=== PATIENT | male | born 1955 | race Caucasian/White ===

== ENCOUNTER 2022-12-25 07:30 | Day surgery (SDC) | payer MEDICARE, OTHER, SELFPAY ==
[2022-12-25 07:55] VITALS: BP 116/78; PULSE 74; RESP 16; TEMP 36.1; O2SAT 98; BMI 33.2
[2022-12-25] MEDS: Lactated Ringers 1,000 ML 15 ML IV (07:57)
--- NOTE | 2022-12-25 08:30 | COLBX_PTH ---
PATIENT: GIA GOSS LOC: EN U#:[id number] AGE/SX: 67/M ROOM: RE12/25/[address]: Dr. Juanpablo Landeros DO : 1955 BED: DIS: 12/25/2022 SPEC #: [id number] RECD: 12/25/22 09:41 STATUS: CAROLYN CURRY #: [id number] BETHANY: 12/25/22 08:[address]: Juanpablo Landeros DEPT: SURGICAL PATHOLOGY RECD BY: Judy Rogers ENTERED: 12/25/22 11:25 SP TYPE: COLON BX OTHR DR: Esme Sorensen, READING COACH-C Tissues: A - Sigmoid colon biopsy B - Rectum, NOS Procedures: Surgery Specimen Level IV HEADER OPERATION: Colonoscopy ? open access (MAC) with biopsies and polypectomy PRE-OP DIAGNOSIS: Screening TISSUE SUBMITTED: A ? Sigmoid polyp biopsy, B ? Rectum polyp MICROSCOPIC DIAGNOSIS A. Sigmoid polyp, biopsy: A fragment of colonic mucosa, no pathologic diagnosis. B. Rectum polyp, polypectomy: Tubular adenoma. Fragments of fecal material. MIGUEL ANGEL:sergio 12/26/2022 MICROSCOPIC DESCRIPTION Slides are reviewed. GROSS DESCRIPTION A - Received in fixative is one container labeled with the patient's name and designated sigmoid polyp biopsy. The specimen consists of one irregular fragment of light garcia soft tissue that measures 0.3 x 0.3 x 0.1 cm. The specimen is totally submitted in one cassette. B - Received in fixative is one container labeled with the patient's name and designated rectum polyp. The specimen consists of a garcia-pink polyp measuring 0.8 x 0.6 x 0.5 cm. The presumed base is inked. The polyp is bisected. Also present in the container are multiple fragments of fecal material. The entire specimen is submitted in one cassette. / MIGUEL ANGEL:sergio 12/25/2022 TC:1 CPT: 56890 x2
--- NOTE | 2022-12-25 08:33 | HP.PCM_ITS ---
[facility] - General General Date of Admission: 12/25/22 Date of Service: 12/25/22 Chief Complaint: Screening colonoscopy [facility] Narrative GIA GOSS, is a 67 M who presents today for screening colonoscopy. He has a past medical history hypertension, diabetes, cholesterolemia. He had a colonoscopy approximately 10 years ago and was normal. He comes in today for screening colonoscopy. He has not had any abdominal pain, cramping, chest pain, shortness of breath or any change in bowel habits. [facility] Medical History Alcohol use CPAP (continuous positive airway pressure) dependence Diabetes History of diverticulitis HTN (hypertension) Hyperlipidemia Leg cramps Non-smoker Wears glasses Home Medications atorvastatin 10 mg tablet 10 mg PO QHS 08/18/22 [History Last Taken Unknown] dapagliflozin propanediol 10 mg tablet (Farxiga) 10 mg PO DAILY DIABETES 08/18/22 [History Last Taken Unknown] lisinopril 10 mg-hydrochlorothiazide 12.5 mg tablet 1 tab PO DAILY 08/18/22 [History Last Taken 12/25/22 06:30] metformin 500 mg tablet 1,000 mg PO BID 08/18/22 [History Last Taken Unknown] omega-3s 300 hv-xqx-qes-other [id number] oil 1,000 mg capsule ([place]-3 Fish Oil) 1 cap PO DAILY SUPPLEMENT 08/18/22 [History Last Taken Unknown] Allergy/AdvReac Type Severity Reaction Status Date / Time No Known Allergies Allergy Verified 12/25/22 07:54 Surgical History History of appendectomy History of arthroscopy of both knees History of colonoscopy History of total left knee replacement Social History Smoking Status: Never smoker ROS Review of Systems ROS Unobtainable: other Constitutional Constitutional: Denies fatigue, fever(s), poor appetite, weight gain or weight loss ENT HEENT: Denies mouth lesions Cardiovascular Cardiovascular: Denies abdominal bloating, abdominal edema or abdominal pain Respiratory/Chest Respiratory/Chest: Denies change in mental status, change in phlegm color, chest congestion or chest tightness Gastrointestinal Gastrointestinal: Denies belching, bloating, change in bowel habits, change in stool character, chewing difficulty, coffee ground emesis, constipation, cramping, diarrhea, dyspepsia, dysphagia, early satiety, excessive flatus, fecal incontinence, heartburn, hematemesis, hematochezia, hemorrhoids, loose stools, melena, nausea, odynophagia, rectal bleeding, tenesmus, vomiting or weight ch anges Genitourinary Genitourinary: Denies abdominal discomfort, burning urination or itching Musculoskeletal Musculoskeletal: Reports as per HPI; Denies muscle weakness or myalgias Integumentary Integumentary: Denies jaundice Neurologic Neurologic: Denies lack of coordination or weakness Psychiatric Psychiatric: Denies confusion, depression, memory loss, mood swings, paranoia or suicidal ideation Endocrine Endocrinology: Denies systems reviewed and no addt'l complaints, except as documented Hematologic/Lymphatic Hematologic/Lymphatic: Denies anemia, easy bleeding, easy bruising or lymphadenopathy Allergic/Immunologic Allergic/Immunologic: Denies systems reviewed and no addt'l complaints, except as documented Vital Signs Vital Signs Vital Signs: 12/25/22 07:55 12/25/22 07:55 Temperature 96.9 F L Temperature Source Temporal Pulse Rate 74 Respiratory Rate 16 Respiratory Pattern Normal Blood Pressure 116/78 Blood Pressure Mean 90 Blood Pressure Source Monitor Blood Pressure Position Semi-Fowlers Blood Pressure Location Left Arm Pulse Ox 98 Oxygen Delivery Method Room Air Weight Weight: 224 lb 13.944 oz Body Mass Index (BMI) 33.2 Physical Exam Const alert General Appearance: cooperative Orientation / Consciousness: oriented to person HEENT hearing grossly normal bilaterally Head and Scalp: normal to inspection Face and Sinus: face symmetric Nose: external nose normal Mouth: oral and palatal mucosa normal Eyes conjunctivae normal General Eye: normal appearance of both eyes Neck full ROM General: normal visual inspection Lymph Lymphatic: no lymphadenopathy noted Chest inspection of chest normal and palpation of chest normal Chest: symmetrical chest wall rise Resp normal respiratory effort Effort and Inspection: able to speak in complete sentences Cardio regular rate GI non-distended Percussion: normal to percussion Rectal Exam: deferred Neuro Speech: speech normal Gait (Neuro): normal gait Assessment & Plan Assessment/Plan (1) Encounter for screening for malignant neoplasm of colon: PLAN: He was explained alternatives, risk, benefits include not withstanding bleeding, infection, sepsis, perforation, need for emergent surgery . He will have an ASA of 2.
[2022-12-25 08:48] LABS: Bedside Glucose 147 mg/dL (74-106)
[2022-12-25 09:05] VITALS: BP 116/78; BP 91/64; PULSE 69; RESP 16; TEMP 36.3; O2SAT 94
--- NOTE | 2022-12-25 09:06 | OP.CCLET_ITS ---
12/25/2022 Esme Sorensen Re : Colonoscopy procedure for Josiah Soria Dear Franchesca This procedure was performed on December. My impressions and recommendations are as follows: Impressions : - Preparation of the colon was fair. - Diverticulosis in the entire examined colon. - Stool in the rectum, in the recto-sigmoid colon, in the sigmoid colon, in the descending colon, in the transverse colon and in the cecum. - One 5 mm polyp in the rectum, removed with a hot snare. Resected and retrieved. - One 5 mm polyp in the sigmoid colon, removed with a cold biopsy forceps. Resected and retrieved. Recommendations : - Repeat colonoscopy in 5 years for surveillance based on pathology results. - Continue present medications. My findings are described in the full procedure note, which is enclosed. If I can be of further assistance, please feel free to contact me at . Sincerely, Juanpablo Landeros, 12/25/2022 9:06:03 AM This report has been signed electronically.
--- NOTE | 2022-12-25 09:06 | OP.COLON_ITS ---
Patient Name: Josiah Soria Procedure Date: 12/25/2022 8:27 AM Date of : 1955 Age: 67 Procedure: Colonoscopy Indications: Screening for colorectal malignant neoplasm Providers: Juanpablo Landeros DO Referring MD: Juanpablo Landeros DO Medicines: Monitored Anesthesia Care Patient Profile: This is a 67 year old male. Refer to note in patient chart for documentation of history and physical. Last Colonoscopy: more than 10 years ago. Complications: No immediate complications. Procedure: Pre-Anesthesia Assessment: - Prior to the procedure, a History and Physical was performed, and patient medications and allergies were reviewed. The patient is competent. The risks and benefits of the procedure and the sedation options and risks were discussed with the patient. All questions were answered and informed consent was obtained. Patient identification and proposed procedure were verified by the physician in the pre-procedure area. Mental Status Examination: alert and oriented. Airway Examination: normal oropharyngeal airway and neck mobility. Respiratory Examination: clear to auscultation. CV Examination: normal. Prophylactic Antibiotics: The patient does not require prophylactic antibiotics. Prior Anticoagulants: The patient has taken no previous anticoagulant or antiplatelet agents. ASA Grade Assessment: II - A patient with mild systemic disease. After reviewing the risks and benefits, the patient was deemed in satisfactory condition to undergo the procedure. The anesthesia plan was to use monitored anesthesia care (MAC). Immediately prior to administration of medications, the patient was re-assessed for adequacy to receive sedatives. The heart rate, respiratory rate, oxygen saturations, blood pressure, adequacy of pulmonary ventilation, and response to care were monitored throughout the procedure. The physical status of the patient was re-assessed after the procedure. After I obtained informed consent, the scope was passed under direct vision. Throughout the procedure, the patient's blood pressure, pulse, and oxygen saturations were monitored continuously. The pediatric colonoscope was introduced through the anus and advanced to the cecum, identified by appendiceal orifice and ileocecal valve. The colonoscopy was performed without difficulty. The patient tolerated the procedure well. The quality of the bowel preparation was fair. Scope In: 8:40:14 AM Scope Withdrawal Time 0 hours 13 minutes 48 seconds Scope Out: 8:59:00 AM Total Procedure Duration Time 0 hours 18 minutes 46 seconds Findings: The perianal and digital rectal examinations were normal. Multiple small and large-mouthed diverticula were found in the entire colon. Liquid semi-solid stool was found in the rectum, in the recto-sigmoid colon, in the sigmoid colon, in the descending colon, in the transverse colon and in the cecum. A 5 mm polyp was found in the rectum. The polyp was sessile. The polyp was removed with a hot snare. Resection and retrieval were complete. Verification of patient identification for the specimen was done. Estimated blood loss was minimal. A 5 mm polyp was found in the sigmoid colon. The polyp was sessile. The polyp was removed with a cold biopsy forceps. Resection and retrieval were complete. Verification of patient identification for the specimen was done. Estimated blood loss was minimal. Impression: - Preparation of the colon was fair. - Diverticulosis in the entire examined colon. - Stool in the rectum, in the recto-sigmoid colon, in the sigmoid colon, in the descending colon, in the transverse colon and in the cecum. - One 5 mm polyp in the rectum, removed with a hot snare. Resected and retrieved. - One 5 mm polyp in the sigmoid colon, removed with a cold biopsy forceps. Resected and retrieved. Recommendation: - Repeat colonoscopy in 5 years for surveillance based on pathology results. - Continue present medications. Procedure Code(s): --- Professional --- 64568, Colonoscopy, flexible; with removal of tumor(s), polyp(s), or other lesion(s) by snare technique 97464, 59, Colonoscopy, flexible; with biopsy, single or multiple CPT copyright 2017 [employer] [employer]. All rights reserved. The codes documented in this report are preliminary and upon professional fee coder review may be revised to meet current compliance requirements. Juanpablo Landeros DO 12/25/2022 9:06:03 AM This report has been signed electronically. Number of Addenda: 0 Note Initiated On: 12/25/2022 8:27 AM
[2022-12-25 09:10] VITALS: BP 116/78; BP 96/61; PULSE 68; RESP 16; O2SAT 92
[2022-12-25 09:15] VITALS: BP 116/78; BP 87/62; PULSE 66; RESP 16; O2SAT 95
[2022-12-25 09:27] VITALS: BP 100/67; BP 116/78; PULSE 81; RESP 16; TEMP 36.6; O2SAT 94
[2022-12-25 09:35] VITALS: BP 116/78
== END 2022-12-25 09:45 | disposition home or self-care (01) ==
LOC: EN 07:36 → AC 07:38
PROVIDERS: PCP Nurse Practitioner Primary Care; Referring Provider Nurse Practitioner Primary Care; Visit Provider Internal Medicine Gastroenterology
PROC: 0DJD8ZZ Inspection of Lower Intestinal Tract, Via Natural or Artificial Opening Endoscopic (ICD-10-PCS; CPT 45378; principal; 2022-12-25 08:25)
DX: Z12.11 Encounter for screening for malignant neoplasm of colon (principal); E11.9 Type 2 diabetes mellitus without complications; I10 Essential (primary) hypertension; E78.00 Pure hypercholesterolemia, unspecified; K57.30 Diverticulosis of large intestine without perforation or abscess without bleeding; D12.8 Benign neoplasm of rectum; Z79.84 Long term (current) use of oral hypoglycemic drugs; Z79.899 Other long term (current) drug therapy; Z87.19 Personal history of other diseases of the digestive system
CPT/HCPCS: 45380; 45385; 82962; 88305; J7120; J2405

== ENCOUNTER → 2025-02-07 | Outpatient (CLI) | payer MEDICARE, SELFPAY ==
--- NOTE | 2025-02-07 10:26 | MRI_ITS ---
PROCEDURE: UPPER EXT JOINT ONLY(ROUTINE) 02/07/2025 REASON FOR EXAM: PAIN, FALL TECHNIQUE: T1, T2, PD, UPPER EXT JOINT ONLY(ROUTINE) Multiplanar and multisequence images were obtained without IV contrast administration. COMPARISON: COMPARISON: February 02, 2025 x-ray FINDINGS: Bone Marrow: There is no bony contusion or occult fracture. Rotator cuff: There is mild supraspinatus muscular atrophy. There is a full-thickness, full width tear of the supraspinatus with 1.8 cm of retraction. There is a full-thickness, full width tear of the infraspinatus, with 2.7 cm of retraction. There is severe distal subscapularis tendinopathy without full-thickness tear or retraction. The teres minor appears intact. AC joint. There is moderate AC joint hypertrophy with a small effusion. There is a type 3 acromion with impingement configuration. Labrum: There is no visible labral tear. Biceps tendon: The biceps tendon is present in the biceps tendon groove, with intact anchors. Effusion: There is a large joint effusion which extends into the subacromial subdeltoid bursa. MRI/Upper Ext Joint Only(Routine) IMPRESSION: There is mild supraspinatus muscular atrophy. There is a full-thickness, full width tear of the supraspinatus with 1.8 cm of retraction. There is a full-thickness, full width tear of the infraspinatus, with 2.7 cm of retraction. There is severe distal subscapularis tendinopathy without full-thickness tear o r retraction. There is moderate AC joint hypertrophy with a small effusion. There is a type 3 acromion with impingement configuration. There is a large joint effusion which extends into the subacromial subdeltoid b ursa. Reading Location: [facility]
--- NOTE | 2025-02-07 10:30 | RAD_ITS ---
PROCEDURE: ORBITS FOR FOREIGN BODY 02/07/2025 REASON FOR EXAM: HISTORY OF METAL TO EYE TECHNIQUE: ORBITS FOR FOREIGN BODY COMPARISON: None FINDINGS: Bones: Unremarkable Sinuses: Unremarkable Additional findings: No radiopaque foreign body seen RAD/Orbits for Foreign Body IMPRESSION: No radiopaque foreign body is seen. Clear for MRI. Reading Location: [id number]
== END | disposition home or self-care (01) ==
PROVIDERS: PCP Nurse Practitioner Primary Care; Referring Provider Orthopaedic Surgery Sports Medicine; Visit Provider Orthopaedic Surgery Sports Medicine
DX: M25.512 Pain in left shoulder (principal)
CPT/HCPCS: 70030; 73221

== ENCOUNTER 2025-03-08 09:20 | Day surgery (SDC) | payer MEDICARE, SELFPAY ==
--- NOTE | 2025-02-28 11:36 | EKG12_ITS ---
Test Reason : PREOP Blood Pressure : */* mmHG Vent. Rate : 68 BPM Atrial Rate : 68 BPM P-R Int : 174 ms QRS Dur : 92 ms QT Int : 406 ms P-R-T Axes : -21 -35 -17 degrees QTcB Int : 431 ms Normal sinus rhythm Left axis deviation Minimal voltage criteria for LVH, may be normal variant Abnormal ECG Confirmed by SHOLA HERNANDEZ, LANDY ([id number]), editor news GEOVANNA WALLIS ([id number]) on 03/01/2025 9:34:30 AM Referred By: Claudy Bueno Confirmed By: LANDY JOLLEY MD
[2025-02-28 11:39] LABS: Hematocrit 49.2 % (40-54); Hemoglobin 16.4 g/dL (13.0-16.5); Mean Corp Hgb Conc 33.3 g/dL (32-36); Mean Corpuscular Volume 92.3 fL (80-94); Mean Platelet Vol. 9.3 fl (6.2-12.0); Platelet Count 267 K/mm3 (150-450); RBC Distribution Width CV 12.7 % (11.6-14.6); RBC Distribution Width SD 43.0 fl (35.1-43.9); Red Blood Count 5.33 M/mm3 (4.6-6.2); White Blood Count 7.2 K/mm3 (4.4-11.0)
[2025-02-28 12:24] LABS: Anion Gap 14 (5-15); BUN 14 mg/dL (4-19); BUN/Creat Ratio 18.3 RATIO (10-20); Calcium,Total 9.5 mg/dL (7.6-11.0); Carbon Dioxide 23.8 mmol/L (21.0-32.0); Chloride 101 mmol/L (98-108); Glucose 138 mg/dL (70-99); Potassium 4.4 mmol/L (3.3-5.1)
--- NOTE | 2025-02-28 15:46 | PAT.ANE_ITS ---
Pre-Assessment Diagnosis/Proposed Procedure Planned Operative Procedure(s): (L) Left shoulder Arthroscopy, subacromial decompression, rotator cuff repair, dermal allograft Anesthesia History Anesthesia History - devulcanizer tender: Anesthesia History - devulcanizer tender Hx Hospitalization No 12/22/22 14:08 Any Problems With Anesthesia No 02/27/25 10:06 Cholinesterase deficiency No 02/27/25 10:06 You/Your Family Experience No 02/27/25 10:06 fever (hyperthermia) with Relationship Recent Exposure to Contagious No 12/25/22 07:55 Disease Does patient have nerve No 02/27/25 10:06 stimulator Patient instructed to have device shut off --Does patient have Pacemaker or ICD? When Was Last Pacemaker Check QUESTION #4 FULL TEXT: You/Your Family Experience fever (hyperthermia) with Anesthesia Last Oral Intake Last Oral intake: Last Oral Intake NPO since Meds taken in AM with sips of water? Meds patient instructed to take am of surgery PONV PONV - devulcanizer tender: PONV - devulcanizer tender Female No 02/27/25 10:06 HX of Motion Sickness No 02/27/25 10:06 HX of N/V After Surgery No 02/27/25 10:06 Non-Smoker Yes 02/27/25 10:06 Duration of Surgery greater Yes 02/27/25 10:06 than 60 minutes Number of Risk Factors 2 02/27/25 10:06 PONV Score Moderate Risk 02/27/25 10:06 Height & Weight Height & Weight: Anesthesia: Height & Weight Height 5 ft 9 in 02/02/25 13:49 Respiratory Assessment Respiratory Assessment - devulcanizer tender: Respiratory Tract Infection Hx - devulcanizer tender Hx Respiratory Tract Infection No 02/27/25 10:06 STOP Sleep Apnea STOP Sleep Apnea - devulcanizer tender: STOP Sleep Apnea - devulcanizer tender Hx Hypertension Yes 02/27/25 10:06 Hx Sleep Apnea Yes 02/27/25 10:06 CPAP Yes 02/27/25 10:06 BIPAP No 02/27/25 10:06 Do you snore loudly (louder than talking or can be heard Do you often feel tired/ fatigued/ sleepy during daytime? Has anyone observed you stop breathing during sleep? STOP Results Positive 02/27/25 10:06 QUESTION #5 FULL TEXT : Do you snore loudly (louder than talking or can be heard through closed doors)? 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 Specify any problems Hx of Preganancy in last 3 N/A 02/27/25 10:06 Months Nurse Filling Out Transfusion MGPETRA 02/27/25 10:06 & Questions: Date: 02/27/25 02/27/25 10:06 Time: 10:08 02/27/25 10:06 Patient unable to answer at this time (ie. confused, unrespo /Reproduction History /Reproductive History - devulcanizer tender: /Reproductive Hx- devulcanizer tender Hx Now No 02/27/25 10:06 Gestational Age (in weeks): EDC: Hx Hx Para Hx Section SAB No 02/27/25 10:06 [facility] Medical History (Updated 02/27/25 @ 10:15 by Marlene Ca) Arthritis Sleep apnea Shortness of breath on exertion Heart murmur Left rotator cuff tear Left shoulder pain Wears glasses Alcohol use Diabetes History of diverticulitis CPAP (continuous positive airway pressure) dependence Leg cramps Non-smoker Hyperlipidemia HTN (hypertension) Home Medications ?Medication ?Instructions ?Recorded ?Last Taken ?Type atorvastatin 10 mg tablet 10 mg PO QHS 08/18/22 Unknow n History dapagliflozin propanediol 10 mg 10 mg PO DAILY DIABETE S 08/18/22 Unknown History tablet (Farxiga) lisinopril 10 1 tab PO DAILY 08/18/2212/11 06:30 History mg-hydrochlorothiazide 12.5 mg tablet omega-3s 300 tm-nuj-oua-other 1 cap PO DAILY SUPPLEMEN T 08/18/22 Unknown History [id number]-[id number] oil 1,000 mg capsule ([place]-3 Fish Oil) tirzepatide 5 mg/0.5 mL 5 mg subcut FR 02/27/2502/10 History subcutaneous pen injector (Pina) Allergy/AdvReac Type Severity Reaction Status Date / Time No Known Allergies Allergy Verified 02/27/25 10:01 Surgical History History of arthroscopy of both knees History of appendectomy History of total left knee replacement History of colonoscopy Social History Smoking Status: Never smoker Audit: Pertinent Findings Pertinent Findings EKG Perinent findings: EKG performed 02/28/2025: Normal sinus rhythm, left axis deviation, minimal voltage criteria for LVH, may be a normal variant. This EKG looks appropriate may proceed. Recommendation Anesthesia Recommendation Anesthesia recommendation: OPTIMIZED for anesthesia
[2025-03-08] VITALS (11 sets, daily range): BP systolic 123–145; BP diastolic 81–102; PULSE 64–97; RESP 16–18; TEMP 35.9–37.6; O2SAT 88–98; BMI 31.8
[2025-03-08] MEDS: Lactated Ringers 1,000 ML 15 ML IV (09:38)
--- NOTE | 2025-03-08 10:03 | PRE.ANES_ITS ---
ASA Classification* ASA Classification ASA Classification: 3 Assessment & Plan Anesthesia* Anesthesia Assessment Anesthesia Assessment: Discussed sedation and/or anesthesia options, risks, benefits, and alternatives with patient/parents/legal guardian/POA. Questions invited. The patient/parents/legal guardian/POA seems to understand and agrees to proceed with anesthesia plan. Reviewed the physical assessment, medical history, allergy history and patient home medications list prior to surgery/procedure/anesthetic and documented any changes. Performed airway and anesthesia risk assessments. Anesthesia Type Anesthesia Type: General and Block History Source History Obtained from:: Patient and Chart Anesthesia Focused Assessment* Temperature: 99.7 F Pulse Rate: 97 Blood Pressure: 123/81 Respiratory Rate: 16 Pulse Ox: 98 Oxygen Delivery Method: Room Air Airway Assessment Mouth opens: 2 cm Mallampati Score: III Teeth Condition: Intact Neck Range of motion (ROM): Full ROM Labs Anesthesia Preop lab: CBC WBC 7.2 K/mm3 (4.4-11.0) 02/28/25 11:22 02/28/25 RBC 5.33 M/mm3 (4.6-6.2) 02/28/25 11:22 02/28/25 Hgb 16.4 g/dL (13.0-16.5) 02/28/25 11:22 02/28/25 Hct 49.2 % (40-54) 02/28/25 11:22 02/28/25 Plt Count 267 K/mm3 (150-450) 02/28/25 11:22 02/28/25 CHEMISTRY Potassium 4.4 mmol/L (3.3-5.1) 02/28/25 11:22 02/28/25 Sodium 139 mmol/L (133-145) 02/28/25 11:22 02/28/25 BUN 14 mg/dL (4-19) 02/28/25 11:22 02/28/25 Creatinine 0.78 mg/dL (0.70-1.20) 02/28/25 11:22 02/28/25 Glucose 138 mg/dL (70-99) H 02/28/25 11:22 02/28/25 POC Glucose 147 mg/dL (74-106) H 12/25/22 07:53 12/25/22 COAG Pre-Assessment Diagnosis/Proposed Procedure Planned Operative Procedure(s): (L) Left shoulder Arthroscopy, subacromial decompression, rotator cuff repair, dermal allograft Anesthesia History Anesthesia History - medical review specialist: Anesthesia History - medical review specialist Hx Hospitalization No 12/22/22 14:08 Any Problems With Anesthesia No 02/27/25 10:06 Cholinesterase deficiency No 02/27/25 10:06 You/Your Family Experience No 02/27/25 10:06 fever (hyperthermia) with Relationship Recent Exposure to Contagious No 03/08/25 09:33 Disease Does patient have nerve No 02/27/25 10:06 stimulator Patient instructed to have device shut off --Does patient have Pacemaker No 03/08/25 09:33 or ICD? When Was Last Pacemaker Check QUESTION #4 FULL TEXT: You/Your Family Experience fever (hyperthermia) with Anesthesia Last Oral Intake Last Oral intake: Last Oral Intake NPO since 00:00 03/08/25 09:33 Meds taken in AM with sips of No 03/08/25 09:33 water? Meds patient instructed to take am of surgery PONV PONV - medical review specialist: PONV - medical review specialist Female No 02/27/25 10:06 HX of Motion Sickness No 02/27/25 10:06 HX of N/V After Surgery No 02/27/25 10:06 Non-Smoker Yes 02/27/25 10:06 Duration of Surgery greater Yes 02/27/25 10:06 than 60 minutes Number of Risk Factors 2 02/27/25 10:06 PONV Score Moderate Risk 02/27/25 10:06 Height & Weight Height & Weight: Anesthesia: Height & Weight Height 5 ft 9 in 03/08/25 09:33 Weight: 98 kg 03/08/25 09:33 Body Mass Index (BMI) 31.8 03/08/25 09:33 Respiratory Assessment Respiratory Assessment - medical review specialist: Respiratory Tract Infection Hx - medical review specialist Hx Respiratory Tract Infection No 02/27/25 10:06 STOP Sleep Apnea STOP Sleep Apnea - medical review specialist: STOP Sleep Apnea - medical review specialist Hx Hypertension Yes 02/27/25 10:06 Hx Sleep Apnea Yes 02/27/25 10:06 CPAP Yes 02/27/25 10:06 BIPAP No 02/27/25 10:06 Do you snore loudly (louder than talking or can be heard Do you often feel tired/ fatigued/ sleepy during daytime? Has anyone observed you stop breathing during sleep? STOP Results Positive 02/27/25 10:06 QUESTION #5 FULL TEXT : Do you snore loudly (louder than talking or can be heard through closed doors)? 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 Specify any problems Hx of Preganancy in last 3 N/A 02/27/25 10:06 Months Nurse Filling Out Transfusion UMER 02/27/25 10:06 & Questions: Date: 02/27/25 02/27/25 10:06 Time: 10:08 02/27/25 10:06 Patient unable to answer at this time (ie. confused, unrespo /Reproduction History /Reproductive History - medical review specialist: /Reproductive Hx- medical review specialist Hx Now No 02/27/25 10:06 Gestational Age (in weeks): EDC: Hx Hx Para Hx Section SAB No 02/27/25 10:06 Active Medications Active Medications: Current Medications Generic Name Dose Route Start Last Admin Trade Name Freq PRN Reason Stop Dose Admin Cefazolin Sodium 2 gm/ Sodium 110 mls @ 200 mls/hr 03/08/25 11:50 Chloride IV 03/08/25 12:22 INTRAOP ONE Lactated Ringer's 1,000 mls @ 15 mls/hr 03/08/25 09:30 03/08/25 09:38 IV 15 mls/hr .Q48H MARLEEN Administration PFSH Medical History (Updated 02/27/25 @ 10:15 by Marlene Ca) Arthritis Sleep apnea Shortness of breath on exertion Heart murmur Left rotator cuff tear Left shoulder pain Wears glasses Alcohol use Diabetes History of diverticulitis CPAP (continuous positive airway pressure) dependence Leg cramps Non-smoker Hyperlipidemia HTN (hypertension) Home Medications ?Medication ?Instructions ?Recorded ?Last Taken ?Type atorvastatin 10 mg tablet 10 mg PO QHS 08/18/22 History dapagliflozin propanediol 10 mg 10 mg PO DAILY DIABETE S 08/18/22 03/05/25 History tablet (Farxiga) lisinopril 10 1 tab PO DAILY 08/18/2202/11 History mg-hydrochlorothiazide 12.5 mg tablet omega-3s 300 oi-vsi-ait-other 1 cap PO DAILY SUPPLEMEN T 08/18/22 03/07/25 History hqjri1a-pzhq oil 1,000 mg capsule ([place]-3 Fish Oil) tirzepatide 5 mg/0.5 mL 5 mg subcut FR 02/27/2502/10 History subcutaneous pen injector (Mounmelyro) Allergy/AdvReac Type Severity Reaction Status Date / Time No Known Allergies Allergy Verified 03/08/25 09:32 Surgical History History of arthroscopy of both knees History of appendectomy History of total left knee replacement History of colonoscopy Social History Smoking Status: Never smoker Review of Systems (Anesthesia) ROS Narrative System reviewed and no additional complaints, except as documented.
--- NOTE | 2025-03-08 11:49 | PCM.HP.STD ---
HPI - General HPI Narrative GIA GOSS, is a 69 M who presents for left shoulder arthroscopy, subacromial decompression, rotator cuff repair, dermal allograft. no change to h and p. left shoulder marked. plan for block. rab, post op instructions, narcotic counselling. ok to proceed. MR#: [id number] Acct: [id number] Name: GIA GOSS GENE Rep #: [id number] : 1955 Provider: Dr. Claudy Bueno MD Age/Sex: 69/M Location: [facility] [place] Status: Signed Intake Vital Signs 02/02/2513:49 Height 5 ft 9 in Weight: 218 lb 4 oz BMI 32.2 Intake Visit Reasons: LEFT SHOULDER Chief Complaint: MRI review Accompanied by: Self Is patient in pain?: No Allergies No Known Allergies Allergy (Verified 02/10/25 11:20) Medications ?Medication ?Instructions ?Recorded ?Confirmed ?Type atorvastatin 10 mg tablet 10 mg PO QHS 08/18/22 02/10/25 History dapagliflozin propanediol 10 mg 10 mg PO DAILY DIABETES 08/18/22 02/10/25 History tablet (Farxiga) lisinopril 10 1 tab PO DAILY 08/18/22 02/10/25 History mg-hydrochlorothiazide 12.5 mg tablet metformin 500 mg tablet 1,000 mg PO BID 08/18/22 02/10/25 History omega-3s 300 ev-llu-qmn-other 1 cap PO DAILY SUPPLEMENT 08/18/22 02/10/25 History fgenn4o-ffnn oil 1,000 mg capsule ([place]-3 Fish Oil) Have you fallen in the past year?: Yes PFSH Medical History Left rotator cuff tear Left shoulder pain Wears glasses Alcohol use Diabetes History of diverticulitis CPAP (continuous positive airway pressure) dependence Leg cramps Non-smoker Hyperlipidemia HTN (hypertension) Surgical History History of arthroscopy of both knees History of appendectomy History of total left knee replacement History of colonoscopy Social History Smoking Status: Never smoker HPI LEFT SHOULDER Details: This documentation accurately reflects the service provided and the decisions made by me, Dr. Claudy Bueno MD 02/10/25 0929. Part of today?s visit was documented by [ ], acting as scribe. GIA GOSS is a 69 year old M here today for FU L shoulder MRI. Supplemental Info [facility] Imaging Services [address] [place] [address] Upper Ext Joint Only(Routine) MR#: [id number] Acct: [id number] Name: GIA GOSS GENE Rep #: [id number] : 1955 M 69 From: Sarthak Casanova MD PCP: DEVON Caicedo Status: REG CLI Study: Upper Ext Joint Only(Routine) Date of Exam: 02/07/25 Exam# [id number] Ordering Dr: Claudy Bueno MD PROCEDURE: UPPER EXT JOINT ONLY(ROUTINE) 02/07/2025 REASON FOR EXAM: PAIN, FALL TECHNIQUE: T1, T2, PD, UPPER EXT JOINT ONLY(ROUTINE) Multiplanar and multisequence images were obtained without IV contrast administration. COMPARISON: COMPARISON: February 02, 2025 x-ray FINDINGS: Bone Marrow: There is no bony contusion or occult fracture. Rotator cuff: There is mild supraspinatus muscular atrophy. There is a full-thickness, full width tear of the supraspinatus with 1.8 cm of retraction. There is a full-thickness, full width tear of the infraspinatus, with 2.7 cm of retraction. There is severe distal subscapularis tendinopathy without full-thickness tear or retraction. The teres minor appears intact. AC joint. There is moderate AC joint hypertrophy with a small effusion. There is a type 3 acromion with impingement configuration. Labrum: There is no visible labral tear. Biceps tendon: The biceps tendon is present in the biceps tendon groove, with intact anchors. Effusion: There is a large joint effusion which extends into the subacromial subdeltoid bursa. MRI/Upper Ext Joint Only(Routine) IMPRESSION: There is mild supraspinatus muscular atrophy. There is a full-thickness, full width tear of the supraspinatus with 1.8 cm of retraction. There is a full-thickness, full width tear of the infraspinatus, with 2.7 cm of retraction. There is severe distal subscapularis tendinopathy without full-thickness tear or retraction. There is moderate AC joint hypertrophy with a small effusion. There is a type 3 acromion with impingement configuration. There is a large joint effusion which extends into the subacromial subdeltoid bursa. [facility] I independently reviewed the imaging. Concur with radiologist report. Coding Level of Care Code Off vis,est,level 4 Diagnoses Left shoulder pain M25.512 Left rotator cuff tear M75.102 Assessment and Plan Assessment and Plan (1) Left shoulder pain: Status: Acute Plan: 69-year-old man with left shoulder large rotator cuff tear with the retraction to the mid humeral head that involves the supraspinatus and infraspinatus. The options here would be to continue on nonsurgical management versus surgery in the form of rotator cuff repair. Given the large nature of the tear as well as the retraction would consider allograft dermal allograft patch augmentation. Could also consider going right to a reverse total shoulder arthroplasty although the glenohumeral joint space is well-preserved just mild OA. I discussed the treatment options here including conservative management I think the best step here would be to consider going ahead with left shoulder arthroscopy, subacromial decompression, rotator cuff repair, dermal allograft. Would recommend the augmentation due to the patient's diabetes age and large size of the tear. She understands surgery signed consent form today. Pros and cons risks and benefits were discussed with the patient including but not limited to infection, pain, stiffness, bleeding, damage to surrounding structures, neurovascular injury, recurrence or retear, failure or wear of hardware or fixation, instability, fracture, deep vein thrombosis and pulmonary embolism, anesthetic risks, , patient dissatisfaction, need for further surgery and other risks. Patient understood and wished to proceed with surgery, and signed the informed consent documentation. (2) Left rotator cuff tear: Status: Acute Clinical Quality Measures Falls Risk Screening/Assistive Devices Have you fallen in the past year?: Yes Ortho Exam General General: Yes no acute distress Neurologic: Yes alert and Yes oriented x3 Psychologic: Yes reasonable and appropriate Left Shoulder Skin/Wound: Yes CDI, No ecchymosis, No erythema and No swelling Testing: Yes Hawkin's, Yes Neer's, No Speed's, No TTP Biceps, No TTP AC Joint, Yes empty can, No scapular winging and Yes belly press normal SHOULDER: normal motor and sens to axillary N, MRU and AIN/PIN. Hand warm well perfused normal radial pulse active FE 90, passively 140 similar to other side. ER 35. FE strength 4 VS 5 other side. ER 4+. pain to palpate at the [facility] Medical History (Updated 02/27/25 @ 10:15 by Marlene Ca) Arthritis Sleep apnea Shortness of breath on exertion Heart murmur Left rotator cuff tear Left shoulder pain Wears glasses Alcohol use Diabetes History of diverticulitis CPAP (continuous positive airway pressure) dependence Leg cramps Non-smoker Hyperlipidemia HTN (hypertension) Home Medications ?Medication ?Instructions ?Recorded ?Last Taken ?Type atorvastatin 10 mg tablet 10 mg PO QHS 08/18/22 03/07/25 History dapagliflozin propanediol 10 mg 10 mg PO DAILY DIABETES 08/18/22 03/05/25 History tablet (Farxiga) lisinopril 10 1 tab PO DAILY 08/18/22 03/06/25 History mg-hydrochlorothiazide 12.5 mg tablet omega-3s 300 cq-hek-vsx-other 1 cap PO DAILY SUPPLEMENT 08/18/22 03/07/25 History arfyp7u-mwts oil 1,000 mg capsule ([place]-3 Fish Oil) tirzepatide 5 mg/0.5 mL 5 mg subcut FR 02/27/25 02/24/25 History subcutaneous pen injector (Mounjaro) Allergy/AdvReac Type Severity Reaction Status Date / Time No Known Allergies Allergy Verified 03/08/25 09:32 Surgical History History of arthroscopy of both knees History of appendectomy History of total left knee replacement History of colonoscopy Social History Smoking Status: Never smoker Vital Signs Vital Signs Vital Signs: 03/08/25 09:33 03/08/25 09:33 03/08/25 10:03 Temperature 99.7 F H 99.7 F H Temperature Source Temporal Pulse Rate 97 97 Respiratory Rate 16 16 Respiratory Pattern Normal Blood Pressure 123/81 H 123/81 H Blood Pressure Mean 95 Blood Pressure Source Monitor Blood Pressure Position Semi-Fowlers Blood Pressure Location Left Arm Pulse Ox 98 98 Oxygen Delivery Method Room Air Room Air Weight Weight: 216 lb 0.848 oz Body Mass Index (BMI) 31.8 Results Lab / Micro Data 02/28/25 11:22 02/28/25 11:22
[2025-03-08] MEDS: Midazolam 2 MG/2 ML Syringe IV (12:10)
[2025-03-08] MEDS: Lidocaine 1% (5 ml sdv) 5 ML Vial 10 ML IV (12:22)
[2025-03-08] MEDS: Cefazolin 1 GM/5 ML Vial 2 GM IV (12:40)
[2025-03-08] MEDS: Epinephrine (1 mg/ml) 1 MG/ML VIAL (12:48)
--- NOTE | 2025-03-08 14:26 | OP.PCM_ITS ---
Problems Associated Problem List Diagnoses (1) Left rotator cuff tear: (2) Left shoulder pain: Procedures Musculoskeletal 20xxx-29xxx: Other Procedure See Report Operative Report (Standard) Operative Information Date of Procedure: 03/08/25 Pre-Operative Diagnosis: L shoulder rotator cuff tear Post-Operative Diagnosis: same Surgery/Procedure Performed: L shoulder arthroscopy, rotator cuff repair, arthrex cuffmend augment printing bindery assistant: Yes Soda Room Operator: jamie Tasks completed by geriatric nursing assistant: Retracting Additional assistant chief engineer?: No Type of Anesthesia: Block,Regional and General RN Documented Start/Stop Times: Operation Date: 03/08/25 11:30 Case Time Into Pre-Op 03/08/25 09:23 Anesthesia Start 03/08/25 12:13 Into Room 03/08/25 12:13 Procedure Start 03/08/25 12:48 Procedure Start Time: 12:48 Procedure Stop Time: 14:28 Select all DRAINS/GRAFTS/IMPLANTS that apply: Graft Graft details: arthrex cuff mend dermal allograft Estimated Blood Loss: 50 Specimen collected: No Description of surgery: Patient brought the operating room theater. Placed supine on the table. General anesthesia induced. Patient transferred left side up lateral decubitus beanbag positioner. Axillary roll used all bony prominences padded. SCDs on legs. Upper extremity prepped and draped in usual sterile fashion with chlorhexidine-based prep solution allowing over 3 minutes drying time prior to draping. Arm in 40 degrees of abduction 10 pounds of inline traction. Preoperative timeout performed to confirm the site patient the surgery. Began by inserting the arthroscope into the intra-articular portion of the shoulder did a full diagnostic arthroscopy. grade 1 Chondral changes on the glenoid and humeral side. The biceps tendon had some slight synovitis longitudinal fraying no instability no tearing slight fraying at the superior glenoid and anterior glenoid at the labrum. I gently debrided these 2 structures. Used a spinal needle inside out localized portal through the rotator interval. Subscapularis some small longitudinal fraying but no tearing no detachment. There is an obvious full-thickness supraspinatus tendon tear with retraction to the mid humeral head with split between the layers as well as split between the supra and infraspinatus. I placed the scope into the subacromial space. I took arthroscopy pictures throughout. I did add full bursectomy for a moderate amount of bursitis. Did a subacromial decompression for 4 mm to flat margins. I assessed the mobility of the tear this was mobile to the foot print. I did a ftok-ik-tean margin convergence suture at the split as well as to capture the delaminated tear. I tied this superiorly with a SMC sliding knot. I then prepared the tuberosity using shaving instruments and ablating instrument. Down to bleeding bed. Given the patient's age the bone was a little softer there. I placed 2 all suture Arthrex RC 2.4 mm fiber tack anchors at the medial footprint just off the articular margin. I set these. I passed the simple suture from inferior to superior as well as the fiber tape suture from each anchor, with good spread. This created 6 suture limbs. I cut at the split. I then crisscrossed the sutures for 4 suture limbs into 1 each (2 total) 4.75 mm Arthrex bio composite swivel lock anchor to create a crisscrossing configuration with 4 suture anchors. This achieved good good repair of the rotator cuff to the tuberosity. I then sized my graft to a 2.5 cm from medial to lateral by 2 cm from anterior to posterior graft. I kept the graft in the appropriate orientation with purple color on the superior aspect of the graft. I attached the graft to the inserted in the standard fashion the I used a passport cannula laterally. I passed the graft inside the shoulder. I placed the graft superiorly on top of the repair ensuring good coverage laterally beyond the rotator cuff repair footprint. I used the knotless fiber stitch devices in a horizontal mattress fashion. I placed 2 of these at the medial row as well as 1 from medial to lateral and a vertical mattress configuration for a ripstop stitch. I then remove the stitches from the supervisor mixing and then placed the knotless push lock anchors anterior laterally and posterior laterally inserted these down tapped them into bone and remove the supervisor mixing's for good coverage and spread of the graft. Final arthroscopy pictures taken and saved onto the system. Arthroscope withdrawn. Portals closed with 3-0 Monocryl sutures skin cleaned with wet dry dressing followed application of Steri-Strips Adaptic 4 x 4 gauze ABD dressing cloth tape with an abduction pillow sling for the upper extremity. Patient will come from general anesthetic operating table taken postanesthetic. In stable condition. All sponge needle instrument counts were correct no complications plan for patient discharged home according to day surgery criteria. CPT 62085, 46966, 23688, mod 22 for the graft Surgical Findings: as above Complications Complications: No Admit VTE Documentation VTE Present on Admission: No VTE Mechan Device Prophylaxis: SCD's VTE Pharm Prophylaxis ordered?: No Reason prophylaxis not ordered: Treatment Not Indicated
--- NOTE | 2025-03-08 14:46 | EX.PCM.DISCH ---
Discharge Instructions Diet Discharge Diet: No restrictions Activity Discharge Activity: May Shower Ice area for (Minutes): 10 Lifting Restrictions: no lifting Additional Activity Instructions:: pendulums only 4x/day Dressing / Incision Call your doctor if your incision/area has: Continuous Slow Oozing, Sudden Increased Bleeding, Increased Pain/ Swelling, Increased Redness, Foul Smelling Discharge and Swelling at the incision site Call your doctor if you observe: Fever of 101 or Higher, Coldness, Increased Pain and Numbness or Tingling Change Dressing in: 1 day Cleanse incision/area with: Do not get Incision Wet Follow Up Care Please Follow Up With: Claudy Bueno MD When: within 2 weeks Test Results: Test results from this visit will be discussed in further detail at your follow-up appointment, if applicable. Discharge Plan Admission Attending Provider: Claudy Bueno Primary Care Provider: Esme Sorensen NP Consulting Providers: Moses Christian Instructions Patient Instructions: After Shoulder Arthroscopy Print Language: Monegasque Discharge Orders/Prescriptions Prescriptions: New oxycodone-acetaminophen [Percocet] 5-325 mg tablet 1 tab PO Q4H MDD 6 PRN (Reason: pain) 5 Days Qty: 30 0RF No Action atorvastatin 10 mg tablet 10 mg PO QHS Farxiga 10 mg tablet 10 mg PO DAILY Patient Comments: LAST DOSE TO BE 03/05 FOR SURGERY ON 03/08/25 lisinopril-hydrochlorothiazide 10-12.5 mg tablet 1 tab PO DAILY [place]-3 Fish Oil 300-1,000 mg capsule 1 cap PO DAILY Mounjaro 5 mg/0.5 mL pen injector 5 mg subcut FR Patient Comments: LAST DOSE 02/24/25 FOR SURGERY ON 03/08/25 Other Ambulatory Orders: 12 Lead EKG (Routine) Timeframe: [id number] Location: None Selected Ordered By: Dr. Moses Christian Referrals / Follow Up: Claudy Bueno MD [Med Staff - Active Staff] - Esme Sorensen NP, DISTRIBUTION ESTIMATOR-C [Primary Care Provider] - Disposition Disposition (needs filled in before D/C Order can be placed): Home, Self Care
--- NOTE | 2025-03-08 15:38 | PCM.POST.ANE ---
Anesthesia: Postop Eval I Current Vital Signs Temperature: 96.6 F Pulse Rate: 65 Blood Pressure: 145/100 Respiratory Rate: 18 Pulse Ox: 93 Oxygen Delivery Method: Room Air Assessment Airway patent: Yes Spontaneous unlabored respirations: Yes Mental status: Awake nausea: No Vomiting: No Anesthesia Complication: No Fluid Hydration Crystalloid volume administer (ml): 1,600 Total IV fluid infused: 1,600 Progress Note Anesthesia document: Postop Eval 1 completed: Yes
--- NOTE | 2025-03-08 15:57 | POSTOPAN2_ITS ---
Anesthesia Postop Eval I Sum Postop Eval Completion status Anesthesia document: Postop Eval 1 completed: Yes Anesthesia Postop Eval I Summary Anesthesia Postop Eval I Summary: Anesthesia Postop Eval I: Assessment Summary Airway patent Yes 03/08/25 15:39 BEER [email or web address] Spontaneous unlabored Yes 03/08/25 15:39 BEER [email or web address].[email or web address] respirations Mental status Awake 03/08/25 15:39 BEER [email or web address] nausea No 03/08/25 15:39 BEER [email or web address].[email or web address] Vomiting No 03/08/25 15:39 BEER MERCHANT.ACAR Anesthesia Postop Eval I: Fluid Summary Crystalloid volume administer 1,600 03/08/25 15:39 BEER [email or web address].ACAR (ml) Colloids volume administered ( ml) Blood Product volume administered (ml) Total IV fluid infused 1,600 03/08/25 15:39 BEER MERCHANT.ACAR Anesthesia Postop Eval I: Summary Notes Anesthesia Complication No 03/08/25 15:39 BEER MERCHANT.ACAR Anesthesia Complication Comment: Post-operative progress note Anesthesia: Postop Eval II Evaluation Mental status: Awake Pain Level: 0 nausea: No Vomiting: No Complications Anesthesia Complication: No
--- NOTE | 2025-03-08 15:57 | PCM.POSTANE2 ---
Anesthesia Postop Eval I Sum Postop Eval Completion status Anesthesia document: Postop Eval 1 completed: Yes Anesthesia Postop Eval I Summary Anesthesia Postop Eval I Summary: Anesthesia Postop Eval I: Assessment Summary Airway patent Yes 03/08/25 15:39 ACADEMIC ADVISEMENT DIRECTOR.ACAR Spontaneous unlabored Yes 03/08/25 15:39 ACADEMIC ADVISEMENT DIRECTOR.ACAR respirations Mental status Awake 03/08/25 15:39 ACADEMIC ADVISEMENT DIRECTOR.ACAR nausea No 03/08/25 15:39 ACADEMIC ADVISEMENT DIRECTOR.ACAR Vomiting No 03/08/25 15:39 ACADEMIC ADVISEMENT DIRECTOR.ACAR Anesthesia Postop Eval I: Fluid Summary Crystalloid volume administer 1,600 03/08/25 15:39 ACADEMIC ADVISEMENT DIRECTOR.ACAR (ml) Colloids volume administered ( ml) Blood Product volume administered (ml) Total IV fluid infused 1,600 03/08/25 15:39 ACADEMIC ADVISEMENT DIRECTOR.ACAR Anesthesia Postop Eval I: Summary Notes Anesthesia Complication No 03/08/25 15:39 ACADEMIC ADVISEMENT DIRECTOR.ACAR Anesthesia Complication Comment: Post-operative progress note Anesthesia: Postop Eval II Evaluation Mental status: Awake Pain Level: 0 nausea: No Vomiting: No Complications Anesthesia Complication: No
== END 2025-03-08 17:10 | disposition home or self-care (01) ==
LOC: SDC 09:20 → AC 09:21
PROVIDERS: Anesthesiology; PCP Nurse Practitioner Primary Care; Referring Provider Orthopaedic Surgery Sports Medicine; Visit Provider Orthopaedic Surgery Sports Medicine
PROC: (CPT 29805; principal; 2025-03-08 11:10)
DX: M75.102 Unspecified rotator cuff tear or rupture of left shoulder, not specified as traumatic (principal); E11.9 Type 2 diabetes mellitus without complications; M75.52 Bursitis of left shoulder; I10 Essential (primary) hypertension; E78.5 Hyperlipidemia, unspecified; Z79.84 Long term (current) use of oral hypoglycemic drugs; Z79.85 Long-term (current) use of injectable non-insulin antidiabetic drugs; Z79.899 Other long term (current) drug therapy
CPT/HCPCS: 29827; 29826; 01630; 64415; 36415; 80048; 82962; 83036; 85027; 93005; C1713; Q4125; A4216; J2405